=== PATIENT | female | born 1980 | race Caucasian/White ===

== ENCOUNTER 2020-03-22 05:57 | Day surgery (SDC) | payer OTHER ==
--- NOTE | 2020-03-18 15:30 | RAD REPORT ---
EXAM DESCRIPTION: RAD - Chest Pa And Lat (2 Views) - 03/18/2020 3:24 pm CLINICAL HISTORY: pre op Chest pain. COMPARISON: No comparisons FINDINGS: The lungs are clear. The heart is normal in size. No displaced fractures. IMPRESSION: No acute or concerning finding suspected.
[2020-03-18 15:57] LABS: Absolute Lymphocytes (CBC) 2.2 K/uL (0.7-4.9); Basophils % 0.5 % (0-1.3); Hematocrit 40.4 % (36.0-45.0); Lymphocytes % 25.2 % (15.3-44.8); MPV 8.3 fL (7.6-11.3); RBC Red Blood Cell Count 4.58 M/uL (3.86-4.86)
[2020-03-18 16:08] LABS: Potassium 3.9 mmol/L (3.5-5.1); Protime INR 0.92
--- NOTE | 2020-03-19 19:34 | EKG ---
Test Date: 2020-03-18 Test Time: 15:02:22 Data Base Administrator: TG MEASUREMENT RESULTS: Intervals: Rate: 66 KS: 186 QRSD: 68 QT: 388 QTc: 406 [place]: P: 44 KS: 186 QRS: 5 T: 42 INTERPRETIVE STATEMENTS: Normal sinus rhythm Normal ECG No previous ECG available for comparison Electronically Signed On 03-19-20 19:32:30 GEOTECHNICIAN by Riley Musa
--- OUTSIDE RECORDS SUMMARY | 2020-03-22 05:59 | XMS REPORT ---
:1980 Author Organization [facility] Address [address] [place], [facility] [address] [id number] Care Team Providers Name Role Phone Green Kim Unavailable [phone] PROBLEMS Type Condition ICD9-CM [id number] Onset Condition SNOMED Code Notes Code Code Dates Status Problem Morbid obesity E66.01 Active 239743074 Problem Vitamin D E55.9 Active 01507286 deficiency Problem Moderately F33.2 Active 010646445 severe recurrent major depression Problem Chronic fatigue R53.82 Active 84944760 Problem Seasonal J30.2 Active 611224054 allergies Problem Anxiety, F41.1 Active 38974286 generalized ALLERGIES Allergen (clinical drug Drug/Non Drug Allergy Reaction Allergy Type Onset Date Status ingredient) documented on EMR meperidine Demerol([facility] hives Drug Allergy Active Code:[address]-21) ENCOUNTERS from 1980 to 2020-01-17 Encounter Location Date Provider Diagnosis [facility] Family [address] Vasquez [facility] [address] [place] [address] Jan, 2020 [place] [address] IMMUNIZATIONS No Information SOCIAL HISTORY Tobacco Use: Social History Observation Description Date Details (start date - stop date) Never Smoker Sex Assigned At : Social History Observation Description Sex Assigned At Unknown PHQ9 Question Answer Notes Little interest or pleasure in doing things More than half t he days Feeling down, depressed, or hopeless More than half the days Trouble falling or staying asleep or sleeping too More than half the days much Feeling tired or having little energy Nearly every day Poor appetite or overeating Nearly every day Feeling bad about yourself, or that you are a Nearly every d ay failure, or have let yourself or your family down Trouble concentrating on things, such as reading More than h [facility] the days the newspaper or watching television Moving or speaking so slowly that other people Not at all could have noticed; or the opposite, being so fidgety or restless that you have been moving around a lot more than usual Total Score 17 Interpretation Moderately severe depression Thoughts that you would be better off or of Not at all hurting yourself in some way Tobacco Use/Smoking Question Answer Notes Are you a never smoker REASON FOR REFERRAL No Information VITAL SIGNS No information MEDICATIONS Medication SIG (Take, Route, Frequency, Start Date End Date Status Duration) BuPROPion HCl ER (SR) 150 MG 1 tablet in the morning and 08 Dec, 20 20 Active PM Orally Once a day for 30 day(s) PROCEDURES No Information RESULTS No Results REASON FOR VISIT Medication and question about last visit MEDICAL (GENERAL) HISTORY Type Description Date Medical History Allergic rhinitis Medical History Depression Medical History Swelling Medical History Anxiety Surgical History appendectomy 1978 Surgical History blockage- intestine cut 1978 Goals Section No Information Health Concerns No Information MEDICAL EQUIPMENT No Information MENTAL STATUS No Information FUNCTIONAL STATUS No Information ASSESSMENTS No Information PLAN OF TREATMENT Medication Medication Name Sig Start Date Stop Date BuPROPion HCl ER (SR) 150 MG 1 tablet in the morning and PM 08 S , 2019 Orally Once a day for 30 day(s) Next Appt Details Provider Name:Oliver Glezcabrera 2020-01-30 0 2:30:00 PM, [address], [place], [address], Insurance Providers Payer Name Payer Payer Insured Name Patient Coverage Covera End Address Phone Relationship to Start Date Alcon e Insured ENTRUST [phone] Wesley Hayward self 2019 [id number] [facility] [phone]
--- OUTSIDE RECORDS SUMMARY | 2020-03-22 05:59 | XMS REPORT ---
:1980 Author Organization [facility] Address [address], [address] [place] [address] Care Team Providers Name Role Phone Kim Green Unavailable [phone] PROBLEMS Type Condition ICD9-CM [id number] Onset Condition SNOMED Code Notes Code Code Dates Status Problem Vitamin D E55.9 Active 44230013 deficiency Problem Seasonal J30.2 Active 423095941 allergies Problem Anxiety, F41.1 Active 96303288 generalized Problem Left hand pain M79.642 Active 999464204019457 Problem Morbid obesity E66.01 Active 032060670 Problem Pre-op Z01.818 Active 881073252303683 evaluation Problem Moderately F33.2 Active 365561701 severe recurrent major depression Problem Chronic R53.82 Active 32121465 fatigue Problem Carpal tunnel G56.01 Active 876373261157393 syndrome of right wrist Problem Carpal tunnel G56.02 Active 468665511356345 syndrome of left wrist Problem Low vitamin D R79.89 Active 867505510 level ALLERGIES Allergen (clinical drug Drug/Non Drug Allergy Reaction Allergy Type Onset Date Status ingredient) documented on EMR meperidine Demerol([facility] hives Drug Allergy Active Code:[address]-35) ENCOUNTERS from 1980 to 2020-02-29 Encounter Location Date [facility] [address] Feb, Kim Green Pre-op evaluation Family Medicine [place], [place] Z01.818 ; Low vitamin [address] D level R79.89 ; Carpal tunnel syndrome of rig ht wrist G56.01 ; Carpal tunnel syndrome of left wrist G56. 02 and Trigger thumb o f right hand M65. 311 IMMUNIZATIONS No Information SOCIAL HISTORY Tobacco Use: [...] things, such as reading More than h [place] the days the newspaper or watching television [...] at all hurting yourself in some way Alcohol Screen Question Answer Notes Did you have a drink containing alcohol in the past Yes year? Points 2 Interpretation Negative How often did you have 6 or more drinks on one Less than mon thly (1 point) occasion in the past year? How many drinks did you have on a typical day when 1 or 2 (0 points) you were drinking in the past year? How often did you have a drink containing alcohol Monthly or less (1 point) in the past year? Tobacco Use/Smoking Question Answer Notes Are you a never smoker Additional Findings: Tobacco Non-User Current non-smoker REASON FOR REFERRAL No Information VITAL SIGNS Height 59.00 in Feb, Weight 228.6 lbs Feb, Temperature 97.6 degrees Fahrenheit Feb, BMI 46.17 kg/m2 Feb, Oximetry 95 % Feb, Respiratory Rate 16 /min Feb, Blood pressure systolic 144 mm Hg Feb, Blood pressure diastolic 86 mm Hg Feb, MEDICATIONS Medication SIG (Take, Route, Notes Start Date End Date Status Frequency, Duration) BuPROPion HCl ER (SR) 1 tablet in the morning Dec, Not-Taking 150 MG and PM Orally Once a day for 30 day(s) PROCEDURES No Information RESULTS No Results REASON FOR VISIT Surgical clearance MEDICAL (GENERAL) HISTORY Type Description Date Medical History Allergic rhinitis Medical History Depression Medical History Anxiety Surgical History appendectomy 1978 Surgical History blockage- intestine cut 1978 Goals Section No Information Health Concerns No Information MEDICAL EQUIPMENT No Information MENTAL STATUS No Information FUNCTIONAL STATUS No Information ASSESSMENTS Encounter Date Diagnosis Assessment Notes Treatment Notes Treatm ent Clinical Notes Feb, Pre-op evaluation per recent labs (ICD-10 - 12/2019, ROS and PE Z01.818) and PMH will clear patient for carpal tunnel surgery and right trigger thumb release planned for 03/15/[address]Vega spence Feb, Low vitamin D Increase foods level (ICD-10 - rich in vitamin D R79.89) such as leafy greens, low fat milk or yogurt. Stay physically active. For strong bones and osteoprosis prevention take calcium 1200mg daily and vitamin D3 (2,000mg) daily. continue to stay physically active and do weight bearing exercises. Feb, Carpal tunnel per [place] syndrome of right severe EMG/NCS wrist (ICD-10 - findings and G56.01) difficulties with ADLs, will have planned right carpal tunnel release on 03/15/2020 pending normal preop labs. Feb, Carpal tunnel -proceed with left syndrome of left carpal tunnel wrist (ICD-10 - release after G56.02) patient has recovered from right carpal tunnel release Feb, Trigger thumb of -hronic trigger right hand thumb for > 20 (ICD-10 - years with flexion M65.311) deformity -planned to have trigger finger release with carpal tunnel release Feb, Other wear wrist splint -- Medicat ions and avoid trigger reviewed a nd until surgery, updated. -- Dietary and Lifestyle modifications discussed with patient regardi ng low fat low avelina t diet diet, exer cise and weight management. -- Treatment options, risks and benefits, side effects reviewe d in detail. Patient accepts risk. Patient verbali zed understanding a nd agreed with alex n. e time was spent counseling and coordinating ca re including but n ot limited to discussion of t est results, diagno stic or treatment recommendations , prognosis, risk s and benefits of management opti ons, instructions, education, compliance and or risk reduction. PLAN OF TREATMENT Treatment Notes Assessment Notes Clinical Notes Pre-op evaluation per recent labs 12/2019, ROS and PE and PMH will clear patient for carpal tunnel surgery and right trigger thumb release planned for 03/15/[address]Vega spence Low vitamin D level Increase foods rich in vitamin D such as leafy greens, low fat milk or yogurt. Stay physically active.For strong bones and osteoprosis prevention take calcium 1200mg daily and vitamin D3 (2,000mg) daily. continue to stay physically active and do weight bearing exercises. Carpal tunnel syndrome of right per [place] sp[place] severe EMG/ NCS wrist findings and difficulties with ADLs, will have planned right carpal tunnel release on 03/15/2020 pending normal preop labs. Carpal tunnel syndrome of left -proceed with left carpal maggie dara wrist release after patient has recovered from right carpal tunnel release Trigger thumb of right hand -hronic trigger thumb for > 20 y ears with flexion deformity-planned to have trigger finger release with carpal tunnel release Next Appt Details prn within next 3 months per patient cecelia real for pap Reason: Insurance Providers Payer Name Payer Payer Insured Name Patient Coverage Covera ge End Address Phone Relationship to Start Date Alcon e Insured ENTRUST [phone] Wesley Hayward self 2019 [id number] [address] [facility] [id number]
--- OUTSIDE RECORDS SUMMARY | 2020-03-22 05:59 | XMS REPORT ---
:1980 Author Organization [facility] Address [address] [facility] 1 [place] [address] Care Team Providers Name Role Phone HewittOliver rees Unavailable [phone] PROBLEMS Type Condition ICD9-CM [id number] Onset Condition SNOMED Code Notes Code Code Dates Status Problem Vitamin D E55.9 Active 34261612 deficiency Problem Seasonal J30.2 Active 783073273 allergies Problem Anxiety, F41.1 Active 91412906 generalized Problem Left hand pain M79.642 Active 168444453595270 Problem Morbid obesity E66.01 Active 080478532 Problem Pre-op Z01.818 Active 721354931306364 evaluation Problem Moderately F33.2 Active 075773880 severe recurrent major depression Problem Chronic R53.82 Active 08528250 fatigue Problem Carpal tunnel G56.01 Active 490418873147395 syndrome of right wrist Problem Carpal tunnel G56.02 Active 105062840468740 syndrome of left wrist Problem Low vitamin D R79.89 Active 346972892 level ALLERGIES Allergen (clinical drug Drug/Non Drug Allergy Reaction Allergy Type Onset Date Status ingredient) documented on EMR meperidine Demerol([facility] hives Drug Allergy Active Code:[address]-87) ENCOUNTERS from 1980 to 2020-02-25 Encounter Location Date Provider Diagnosis [facility] [address] Feb, Oliver Hewitt Righ t hand pain [facility] [address] [place], M79.641 ; Left hand [facility] [address] pain M79.642 ; Carpal tunnel syndrome of lef t wrist G56.02 ; Carpal tunnel syndrome of rig ht wrist G56.01 an d Trigger thumb o f right hand M65. [...] VITAL SIGNS Height 59.00 in Feb, Weight 226.6 lbs Feb, BMI 45.76 kg/m2 Feb, Blood pressure systolic 109 mm Hg Feb, Blood pressure diastolic 45 mm Hg Feb, MEDICATIONS Medication SIG (Take, Route, Notes Start Date End Date Status Frequency, Duration) BuPROPion HCl ER (SR) 1 tablet in the morning Dec, Not-Taking 150 MG and PM Orally Once a day for 30 day(s) PROCEDURES No Information RESULTS No Results REASON FOR VISIT NEW PT: [facility] HAND PAIN--HAS EMG W/DR. PARNELL MEDICAL (GENERAL) HISTORY Type Description Date Medical History Allergic rhinitis Medical History Depression Medical History Anxiety Surgical History appendectomy 1978 Surgical History blockage- intestine cut 1979 Goals Section No Information Health Concerns No Information MEDICAL EQUIPMENT No Information MENTAL STATUS No Information FUNCTIONAL STATUS No Information ASSESSMENTS Encounter Date Diagnosis Assessment Notes Treatment Notes Treatm ent Clinical Notes Feb, Right hand pain (ICD-10 - M79.641) Feb, Left hand pain (ICD-10 - M79.642) Feb, Carpal tunnel -proceed with left syndrome of left carpal tunnel release wrist (ICD-10 - after patient has G56.02) recovered from right carpal tunnel release Feb, Carpal tunnel I discussed with the syndrome of patient at length her right wrist diagnosis and (ICD-10 - treatment plan and G56.01) she expressed understanding. Given severe EMG/NCS findings and difficulties with ADLs, will proceed with right carpal tunnel release. I discussed with the patient risks and benefits associated with the procedure at length as well as postoperative rehabilitation and she expressed understanding. Feb, Trigger thumb of -discussed with the right hand patient her condition (ICD-10 - at length M65.311) -appears to have chronic trigger thumb for > 20 years with flexion deformit y -will proceed with trigger finger release with carpal tunnel release -discussed possibility of continued flexion contracture secondary to joint contractures from chronic deformity -expressed understanding PLAN OF TREATMENT Treatment Notes Assessment Notes Clinical Notes Carpal tunnel syndrome of left -proceed with left carpal maggie dara wrist release after patient has recovered from right carpal tunnel release Carpal tunnel syndrome of right I discussed with the patient at wrist length her diagnosis and treatment plan and she expressed understanding. Given severe EMG/NCS findings and difficulties with ADLs, will proceed with right carpal tunnel release. I discussed with the patient risks and benefits associated with the procedure at length as well as postoperative rehabilitation and she expressed understanding. Trigger thumb of right hand -discussed with the patient her condition at length-appears to have chronic trigger thumb for > 20 years with flexion deformity-will proceed with trigger finger release with carpal tunnel release-discussed possibility of continued flexion contracture secondary to joint contractures from chronic deformity-expressed understanding Treatment Notes Test Name Order Date X-RAY EXAM HAND 3 VIEWS ([id number]) 2020-02-25 Next Appt Details f/u 1 week postop Reason: Insurance Providers Payer Name Payer Payer Insured Name Patient Coverage Covera ge End Address Phone Relationship to Start Date Alcon e Insured ENTRUST [phone] Wesley Hayward self 2019 [id number] [address] [facility] [phone]
--- OUTSIDE RECORDS SUMMARY | 2020-03-22 05:59 | XMS REPORT | Continuity of Care Document ---
:1980 Author Organization [facility] t Address [address] [place] [address] Care Team Providers Name Role Phone Unavailable Unavailable Unavailable Problems This patient has no known problems. Allergies, Adverse Reactions, Alerts Allergy Allergy Status Severity Reaction(s) Onset Inactive Treating Comm ents Source Name Type Date Date Clinician Demerol Adverse Active hives [facility] Medications Ordered Filled Start Stop Current Ordering Indication Dosage Frequency Signature Comments Components Source Medication Medication Date Date Medication? Clinician (SIG) Name Name BuPROPion BuPROPion Yes Na Green [address] [facility] HCl ER (SR) HCl ER (SR) 12-11 in the [facility] Procedures This patient has no known procedures. Encounters Start End Encounter Admission Attending Care Care Encounter Source Date/Time Date/Time Type Type Clinicians Facility Department ID 2020-03-21 2020-03-21 Outpatient [facility] [id number] [facility] 2020-03-12 2020-03-12 Outpatient [facility] [id number] [facility] 2020-03-07 2020-03-07 Outpatient [facility] [id number] [facility] 2020-02-22 2020-02-22 Outpatient [facility] [id number] [facility] 2020-02-16 2020-02-16 Out[facility] [id number] [facility] 2020-02-15 2020-02-15 Out[facility] [id number] [facility] 2020-01-20 2020-01-20 Outpatient [facility] [id number] [facility] 2020-01-16 2020-01-16 Out[facility] [id number] [facility] 2019-12-18 2019-12-18 Outpatient Rhina Shankar [id number] [facility] 16:00[facility]00 16:00:00 [employer] [facility] Clin[facility] 2019-12-12 2019-12-12 Outpatient Rhina Shankar [id number] 15:20:00 15:20:00 [employer] [facility] Clin[facility] Results This patient has no known results.
--- OUTSIDE RECORDS SUMMARY | 2020-03-22 05:59 | XMS REPORT ---
:1980 Author Organization [facility] Address [address], [facility] [address] [id number] Care Team Providers Name Role Phone Green Kim Unavailable [phone] PROBLEMS Type Condition ICD9-CM UBL37-IP Onset Condition SNOMED Code Notes Code Code Dates Status Problem Morbid obesity E66.01 Active 978828851 Problem Vitamin D E55.9 Active 55691201 deficiency Problem Moderately F33.2 Active 602421787 severe recurrent major depression Problem Chronic fatigue R53.82 Active 14133313 Problem Seasonal J30.2 Active 788389420 allergies Problem Anxiety, F41.1 Active 95040892 generalized ALLERGIES Allergen (clinical drug Drug/Non Drug Allergy Reaction Allergy Type Onset Date Status ingredient) documented on EMR meperidine Demerol([facility] hives Drug Allergy Active Code:[address]-37) ENCOUNTERS from 1980 to 2020-01-23 Encounter Location Date Provider Diagnosis [facility] Family [address] Vasquez [facility] [address] [address] Jan, 2020 [place] [address] IMMUNIZATIONS No Information SOCIAL HISTORY Tobacco Use: [...] things, such as reading More than h senior living the days the newspaper or watching television [...] Information RESULTS No Results REASON FOR VISIT labs MEDICAL (GENERAL) HISTORY Type Description Date Medical [...] 30 day(s) Next Appt Details Provider Name:Oliver Hewitt, 2020-01-30 0 2:30:00 PM, [address], [place], [address], Insurance Providers Payer Name Payer Payer Insured Name Patient Coverage Covera ge End Address Phone Relationship to Start Date Alcon e Insured [employer]TR[employer] [phone] Wesley Hayward self 2019 [id number] [address] [facility] [address]
--- OUTSIDE RECORDS SUMMARY | 2020-03-22 05:59 | XMS REPORT ---
:1980 Author Organization [facility] Address [address] [place] [address] Care Team Providers Name Role Phone Oliver Hewitt Unavailable [phone] PROBLEMS Type Condition ICD9-CM [id number] Onset Condition SNOMED Code Notes Code Code Dates Status Problem Vitamin D E55.9 Active 15622397 deficiency Problem Seasonal J30.2 Active 753253093 allergies Problem Anxiety, F41.1 Active 23611019 generalized Problem Left hand pain M79.642 Active 186871654303519 Problem Morbid obesity E66.01 Active 192068540 Problem Pre-op Z01.818 Active 872233005571721 evaluation Problem Moderately F33.2 Active 125537239 severe recurrent major depression Problem Chronic R53.82 Active 21179229 fatigue Problem Carpal tunnel G56.01 Active 736058385853087 syndrome of right wrist Problem Carpal tunnel G56.02 Active 622750461033328 syndrome of left wrist Problem Low vitamin D R79.89 Active 309113283 level ALLERGIES Allergen (clinical drug Drug/Non Drug Allergy Reaction Allergy Type Onset Date Status ingredient) documented on EMR meperidine Demerol([facility] hives Drug Allergy Active Code:[address]-22) ENCOUNTERS from 1980 to 2020-03-04 Encounter Location Date Provider Diagnosis [facility] [address] Feb, Olga Hewitt [place] [address] IMMUNIZATIONS No Information SOCIAL HISTORY Tobacco Use: [...] things, such as reading More than h half-way the days the newspaper or watching television [...] or more drinks on one Less than wed thly (1 point) occasion in the past [...] No information MEDICATIONS Medication SIG (Take, Route, Notes Start Date End Date Status Frequency, Duration) BuPROPion HCl ER (SR) 1 tablet in the morning Dec, Not-Taking 150 MG and PM Orally Once a day for 30 day(s) PROCEDURES No Information RESULTS No Results REASON FOR VISIT pcp clearance request MEDICAL (GENERAL) HISTORY Type Description Date Medical History Allergic rhinitis Medical History Depression Medical History Anxiety Surgical History appendectomy 1978 Surgical History blockage- intestine cut 1979 Goals Section No Information Health Concerns No Information MEDICAL EQUIPMENT No Information MENTAL STATUS No Information FUNCTIONAL STATUS No Information ASSESSMENTS No Information PLAN OF TREATMENT No Information Insurance Providers Payer Name Payer Payer Insured Name Patient Coverage Covera End Address Phone Relationship to Start Date Alcon e Insured [employer]TR[employer] [phone] Wesley Hayward self 2019 [id number] [facility] [id number]
--- OUTSIDE RECORDS SUMMARY | 2020-03-22 06:00 | XMS REPORT ---
:1980 Author Organization [facility] Address [address] [place] [address] Care Team Providers Name Role Phone Oliver Hewitt Unavailable [phone] PROBLEMS Type Condition ICD9-CM [id number] Onset Condition SNOMED Code Notes Code Code Dates Status Problem Vitamin D E55.9 Active 58593999 deficiency Problem Seasonal J30.2 Active 891394792 allergies Problem Anxiety, F41.1 Active 33331561 generalized Problem Left hand pain M79.642 Active 310086685900269 Problem Morbid obesity E66.01 Active 948992340 Problem Pre-op Z01.818 Active 859594085026157 evaluation Problem Moderately F33.2 Active 323879257 severe recurrent major depression Problem Chronic R53.82 Active 13246716 fatigue Problem Carpal tunnel G56.01 Active 842746114380674 syndrome of right wrist Problem Carpal tunnel G56.02 Active 272706320022516 syndrome of left wrist Problem Low vitamin D R79.89 Active 234982024 level ALLERGIES Allergen (clinical drug Drug/Non Drug Allergy Reaction Allergy Type Onset Date Status ingredient) documented on EMR meperidine Demerol([facility] hives Drug Allergy Active Code:[address]-49) ENCOUNTERS from 1978 to 2020-03-13 Encounter Location Date Provider Diagnosis [facility] [address], [place] [address] IMMUNIZATIONS No Information SOCIAL HISTORY Tobacco Use: [...] things, such as reading More than h retirement the days the newspaper or watching television [...] more drinks on one Less than wed (1 point) occasion in the past year? [...] Information RESULTS No Results REASON FOR VISIT surgery cost MEDICAL (GENERAL) HISTORY Type Description Date Medical History Allergic rhinitis Medical History Depression Medical History Anxiety Surgical History appendectomy 1978 Surgical History blockage- intestine cut 1978 Goals Section No Information Health Concerns No Information MEDICAL EQUIPMENT No Information MENTAL STATUS No Information FUNCTIONAL STATUS No Information ASSESSMENTS No Information PLAN OF TREATMENT Next Appt Details Provider Name:Oliver Hewitt, 2020-04-01 0 3:00:00 PM, [address], [place], [address], Insurance Providers Payer Name Payer Payer Insured Name Patient Coverage Covera ge End Address Phone Relationship to Start Date Alcon e Insured [employer] [phone] Wesley Hayward self 2021 [id number] [facility] [id number]
--- OUTSIDE RECORDS SUMMARY | 2020-03-22 06:00 | XMS REPORT ---
:1980 Author Organization [facility] Address [address] [facility] [address] [place] [address] Care Team Providers Name Role Phone Kash Oliver Unavailable [phone] PROBLEMS Type Condition ICD9-CM [id number] Onset Condition SNOMED Code Notes Code Code Dates Status Problem Vitamin D E55.9 Active 16474106 deficiency Problem Seasonal J30.2 Active 974424078 allergies Problem Anxiety, F41.1 Active 65430467 generalized Problem Left hand pain M79.642 Active 243942360965554 Problem Morbid obesity E66.01 Active 058538368 Problem Pre-op Z01.818 Active 124040034365246 evaluation Problem Moderately F33.2 Active 459052174 severe recurrent major depression Problem Chronic R53.82 Active 01286423 fatigue Problem Carpal tunnel G56.01 Active 851757660939807 syndrome of right wrist Problem Carpal tunnel G56.02 Active 319492564158296 syndrome of left wrist Problem Low vitamin D R79.89 Active 003223171 level ALLERGIES Allergen (clinical drug Drug/Non Drug Allergy Reaction Allergy Type Onset Date Status ingredient) documented on EMR meperidine Demerol([facility] hives Drug Allergy Active Code:[address]-58) ENCOUNTERS from 1978 to 2020-03-14 Encounter Location Date Provider Diagnosis [facility] [address], Oliver moss hand pain [facility] [address] [place], M79.641 ; [facility] [address] tunnel syndrom e of right wrist G56 .01 ; Left hand abbie n M79.642 ; Alexa er thumb of right hand M65.311 and Car pal tunnel syndrome of left wrist G56. 02 IMMUNIZATIONS No Information SOCIAL HISTORY Tobacco Use: [...] No Information VITAL SIGNS Height 59.00 in Mar, Weight 228 lbs Mar, Temperature 96.6 degrees Fahrenheit Mar, BMI 46.05 kg/m2 Mar, Blood pressure systolic 126 mm Hg Mar, Blood pressure diastolic 78 mm Hg Mar, MEDICATIONS Medication SIG (Take, Route, Notes Start Date End Date Status Frequency, Duration) BuPROPion HCl ER (SR) 1 tablet in the morning Dec, Not-Taking 150 MG and PM Orally Once a day for 30 day(s) PROCEDURES No Information RESULTS No Results REASON FOR VISIT F/U RT HAND PAIN, DISCUSS SURGERY FOR RT CTR AND RT THUMB TRIGGER RELEASE 03/22/2020 MEDICAL (GENERAL) HISTORY Type Description Date Medical History Allergic rhinitis Medical History Depression Medical History Anxiety Surgical History appendectomy 1978 Surgical History blockage- intestine cut 1979 Goals Section No Information Health Concerns No Information MEDICAL EQUIPMENT No Information MENTAL STATUS No Information FUNCTIONAL STATUS No Information ASSESSMENTS Encounter Date Diagnosis Assessment Notes Treatment Notes Treatm ent Clinical Notes Mar, Right hand pain (ICD-10 - M79.641) Mar, Carpal tunnel I discussed with the syndrome of patient at length her right wrist diagnosis and (ICD-10 - treatment plan and G56.01) she expressed understanding. Given severe EMG/NCS findings and difficulties with ADLs, will proceed with right carpal tunnel release. I discussed with the patient risks and benefits associated with the procedure at length as well as postoperative rehabilitation and she expressed understanding. We will proceed with surgery in the coming weeks. Mar, Left hand pain (ICD-10 - M79.642) Mar, Trigger thumb of -discussed with the right hand patient her condition (ICD-10 - at length M65.311) -appears to have chronic trigger thumb for > 20 years with flexion deformit y -will proceed with trigger finger release with carpal tunnel release -discussed possibility of continued flexion contracture secondary to joint contractures from chronic deformity -expressed understanding Mar, Carpal tunnel -proceed with left syndrome of left carpal tunnel release wrist (ICD-10 - after patient has G56.02) recovered from right carpal tunnel release PLAN OF TREATMENT Treatment Notes Assessment Notes Clinical Notes Carpal tunnel syndrome of right I discussed with the patient at wrist length her diagnosis and treatment plan and she expressed understanding. Given severe EMG/NCS findings and difficulties with ADLs, will proceed with right carpal tunnel release. I discussed with the patient risks and benefits associated with the procedure at length as well as postoperative rehabilitation and she expressed understanding. We will proceed with surgery in the coming weeks. Trigger thumb of right hand -discussed with the patient her condition at length-appears to have chronic trigger thumb for > 20 years with flexion deformity-will proceed with trigger finger release with carpal tunnel release-discussed possibility of continued flexion contracture secondary to joint contractures from chronic deformity-expressed understanding Carpal tunnel syndrome of left -proceed with left carpal maggie dara wrist release after patient has recovered from right carpal tunnel release Next Appt Details 1 Week after surgery Reason: Provider Name:Oliver Hewitt 2020-04-01 0 3:00:00 PM, [address], [place], [address], Insurance Providers Payer Name Payer Payer Insured Name Patient Coverage Covera End Address Phone Relationship to Start Date Alcon e Insured [employer] [phone] Wesley Hayward self 2021 [id number] [facility] [id number]
--- OUTSIDE RECORDS SUMMARY | 2020-03-22 06:00 | XMS REPORT ---
:1980 Author Organization [facility] Address [address] [place] [address] Care Team Providers Name Role Phone Kim Green Unavailable [phone] PROBLEMS Type Condition ICD9-CM [id number] Onset Condition SNOMED Code Notes Code Code Dates Status Problem Vitamin D E55.9 Active 12182866 deficiency Problem Seasonal J30.2 Active 815889430 allergies Problem Anxiety, F41.1 Active 68885594 generalized Problem Left hand pain M79.642 Active 451202943740913 Problem Morbid obesity E66.01 Active 002401861 Problem Pre-op Z01.818 Active 497010462782794 evaluation Problem Moderately F33.2 Active 295282284 severe recurrent major depression Problem Chronic R53.82 Active 50630728 fatigue Problem Carpal tunnel G56.01 Active 502598270982136 syndrome of right wrist Problem Carpal tunnel G56.02 Active 090941083841607 syndrome of left wrist Problem Low vitamin D R79.89 Active 657139507 level ALLERGIES Allergen (clinical drug Drug/Non Drug Allergy Reaction Allergy Type Onset Date Status ingredient) documented on EMR meperidine Demerol([facility] hives Drug Allergy Active Code:[address]-24) ENCOUNTERS from 1978 to 2020-03-21 Encounter Location Date Provider Diagnosis [facility] [address], Kim [facility] [place] [address] IMMUNIZATIONS No Information SOCIAL HISTORY Tobacco Use: [...] HCl ER (SR) 1 tablet in the Dec, Not-Taking 150 MG morning and PM Orally Once a day for 30 day(s) Tylenol # 3 300/30mg one tab PO q 6 hrs Mar,2020 Active prn pain for 30 days PROCEDURES No Information RESULTS No Results REASON FOR VISIT rx for sx MEDICAL (GENERAL) HISTORY Type Description Date Medical History Allergic rhinitis Medical History Depression Medical History Anxiety Surgical History appendectomy 1978 Surgical History blockage- intestine cut 1978 Goals Section No Information Health Concerns No Information MEDICAL EQUIPMENT No Information MENTAL STATUS No Information FUNCTIONAL STATUS No Information ASSESSMENTS No Information PLAN OF TREATMENT Medication Medication Name Sig Start Date Stop Date Tylenol # 3 300/30mg one tab PO q 6 hrs prn pain for 30 Mar, May, days Next Appt Details Provider Name:Oliver Hewitt, 2020-04-01 0 3:00:00 PM, [address], [place], [address], Insurance Providers Payer Name Payer Payer Insured Name Patient Coverage Covera End Address Phone Relationship to Start Date Alcon e Insured [employer] [phone] Wesley Hayward self 2021 [id number] [facility] [phone]
[2020-03-22] MEDS ORDERED: CEFAZOLIN/SWI 1gm 1 GM/10 ML SYR ONE (06:28)
[2020-03-22] MEDS ORDERED: Ringers Lactate 1,000 ML IV ONE (06:28)
[2020-03-22] MEDS ORDERED: propofoL 200 MG/20 ML VIAL IV ONE (06:59)
[2020-03-22] MEDS ORDERED: FENTANYL CITR 100 MCG/2 ML ONE (07:00)
[2020-03-22] MEDS ORDERED: LIDOCAINE 2% MPF 5 ML VIAL ONE (07:00)
[2020-03-22] MEDS ORDERED: MIDAZOLAM HCL 2 MG/2 ML INJ ONE (07:00)
[2020-03-22] MEDS ORDERED: ONDANSETRON 4 MG/2 ML VIAL ONE (07:01)
[2020-03-22] MEDS ORDERED: dexAMETHasone 10 MG/ML VIAL ONE (07:25)
[2020-03-22] MEDS: BUPIVACAINE 0.25% PF 10 ML VIAL ONE ×2 (07:36→08:00)
[2020-03-22] MEDS ORDERED: EPHEDRINE SULF 50 MG/ML VIAL ONE (07:37)
[2020-03-22] MEDS ORDERED: KETOROLAC 30 MG/ML INJ ONE (07:41)
--- NOTE | 2020-03-22 08:21 | P.BOP ---
Preoperative diagnosis: right carpal tunnel syndrome, right chronic trigger thumb Postoperative diagnosis: same Primary procedure: right open carpal tunnel release Secondary procedure: right trigger thumb A1 lambert release Foundry Manager: NONE,NONE Estimated blood loss: 5 cc Specimen: none Findings: see dictation Anesthesia: General Complications: None Implants: none Fluids & blood products: per anesthesia record; TT: 39 mins @ 250 mmHg Transferred to: Recovery Room Condition: Good
[2020-03-22] MEDS: MORPHINE 4 MG/ML SYR ONE ×2 (08:44→08:49)
[2020-03-22 09:47] VITALS: BP 102/52; TEMP 97.2; O2SAT 99
[2020-03-22] MEDS ORDERED: HYDROCODONE/APAP 10/325 TAB ONE (09:58)
--- NOTE | 2020-03-22 11:55 | OP ---
Date of Procedure: 03/22/2020 Surgeon: Oliver Hewitt MD Preoperative Diagnoses: 1.Right carpal tunnel syndrome. 2.Right chronic trigger thumb. Postoperative Diagnoses: 1.Right carpal tunnel syndrome. 2.Right chronic trigger thumb. Procedures Performed: 1.Right open carpal tunnel release. 2.Right thumb A1 lambert release. Anesthesia: General LMA. Fluids: Per Anesthesia record. Ebl: 3 cc. Complications: None Indication For Procedure: Ms. Hayward is a 39-year-old female presented to me with signs, symptoms, and EMG findings consistent with a right carpal tunnel syndrome, which has failed to improve with conser vative treatment measures. The patient also reported over 25 year history of right thumb flexion def ormity with pain over her A1 lambert. I discussed with the patient at length risks and benefits assoc iated with operative and nonoperative treatment and discussed proceeding with a right open carpal maggie dara release as well as A1 lambert release with the possibility of improving her range of motion, howev er, we did discuss the possibility of continued contraction, stiffness in her thumb. She expressed u nderstanding and elected to proceed with operative treatment. Description Of Procedure: After informed consent was obtained, the patient was identified in the pre operative holding area. The right upper extremity was marked. The patient was then taken to the ope rating room, transferred to the operating table in the supine fashion and placed under general LMA an esthesia. The right upper extremity was then prepped and draped in usual sterile fashion. A time-ou t was initiated. The correct patient and procedure were confirmed and identified. The patient did r eceive her preoperative prophylactic antibiotics. Right upper extremity was exsanguinated and the to urniquet was inflated to 250 mmHg. Attention was first taken to the carpal tunnel, where approximate ly a 2 cm longitudinal incision was made just ulnar to the thenar crease. Dissection was then taken down to the palmar fascia. A [place] elevator was placed deep to the palmar fascia and the palmar fasc ia and transverse carpal ligament were released in a distal proximal fashion. [place] elevator was bel ow the transverse carpal ligament all times to protect the median nerve and any remaining fascial ban ds were then released using a small tip Metzenbaum scissors with the tip's end superficially. The wo und was then irrigated thoroughly with normal saline. Next, attention was taken to the thumb A1 pull ey where approximately 1.5 cm incision was made over the thumb flexion crease. Dissection was then t aken down to the flexor tendon sheath, which was very fibrotic. It also appeared to be incorporated with the flexor tendon. The flexor tendon sheath was then opened with a 15 blade and debrided using Metzenbaums and tenotomies protecting the radial digital nerve at all times. The wound was then irri gated thoroughly with normal saline. The patient was also noted to have continued contracture second elena to the significant fibrosis of her flexor tendon of the thumb. Again, the wounds were then irrig ated thoroughly with normal saline. Skin was approximated using a 5-0 Prolene. Sterile dressings we re applied. The patient was awakened and transferred to PACU in stable condition. Postoperative Plan: She will work on range of motion exercises of her right hand and follow up in 1 week for suture removal. SHARON/ERIC Voice ID: [id number] Report ID: [id number]
== END 2020-03-22 10:40 | disposition home or self-care (01) ==
LOC: OR 05:57
PROVIDERS: ATTEND Orthopaedic Surgery Sports Medicine
PROC: 01N50ZZ Release Median Nerve, Open Approach (ICD-10-PCS; principal; 2020-03-22 07:30)
PROC: 0LN70ZZ Release Right Hand Tendon, Open Approach (ICD-10-PCS; 2020-03-22 07:30)
DX: G56.03 Carpal tunnel syndrome, bilateral upper limbs (principal); M65.311 Trigger thumb, right thumb; F32.9 Major depressive disorder, single episode, unspecified; F41.9 Anxiety disorder, unspecified; Z20.828 Contact with and (suspected) exposure to other viral communicable diseases
CPT/HCPCS: 93005; 85025; 80048; 36415; 81025; 85610; 85730; 71046; 64721; 26055; U0002; J2704; J2250; J3010; J1100; J0690; J7120; J2405

== ENCOUNTER 2020-12-18 09:34 | Day surgery (SDC) | payer OTHER ==
--- NOTE | 2020-12-13 09:01 | RAD REPORT ---
EXAM DESCRIPTION: RAD - Chest Pa And Lat (2 Views) - 12/13/2020 8:50 am CLINICAL HISTORY: PreOp COMPARISON: Chest Pa And Lat (2 Views) dated 03/18/2020 FINDINGS: Lines: None. Lungs: No evidence of edema or pneumonia. Pleural: No significant pleural effusions or pneumothorax. Cardiac: The heart size is within normal limits. Bones: No acute fractures. Other: IMPRESSION: No acute cardiopulmonary disease.
[2020-12-18 09:54] LABS: Specific Gravity 1.015 (1.005-1.030)
[2020-12-18] MEDS ORDERED: LIDOCAINE 2% MPF 5 ML VIAL ONE (10:06)
[2020-12-18] MEDS ORDERED: MIDAZOLAM HCL 2 MG/2 ML INJ ONE (10:06)
[2020-12-18] MEDS ORDERED: NS 0.9% VIAL 30 ML ONE (10:06)
[2020-12-18] MEDS ORDERED: FENTANYL CITR 100 MCG/2 ML ONE (10:06)
[2020-12-18] MEDS ORDERED: propofoL 200 MG/20 ML VIAL IV ONE (10:06)
[2020-12-18] MEDS ORDERED: LIDOCAINE 1% MPF 30 ML VIAL ONE (10:06)
[2020-12-18] MEDS ORDERED: dexAMETHasone 10 MG/ML VIAL ONE (10:06)
[2020-12-18] MEDS ORDERED: ONDANSETRON 4 MG/2 ML VIAL ONE (10:06)
[2020-12-18] MEDS ORDERED: KETOROLAC 30 MG/ML INJ ONE (10:06)
[2020-12-18] MEDS ORDERED: CEFAZOLIN/SWI 1gm 2 GM/20 ML SYR ONE (10:11)
[2020-12-18] MEDS ORDERED: Ringers Lactate 1,000 ML IV ONE (10:11)
[2020-12-18 10:16] VITALS: O2SAT 98
[2020-12-18] MEDS ORDERED: ACETAMINOPHEN 500 MG TAB ONE (10:26)
[2020-12-18] MEDS ORDERED: CELECOXIB 100 MG CAPSULE ONE (10:26)
[2020-12-18] MEDS: BUPIVACAINE 0.25% PF 10 ML VIAL ONE ×2 (11:05→11:15)
--- NOTE | 2020-12-18 11:29 | P.BOP ---
Preoperative diagnosis: left carpal tunnel syndrome Postoperative diagnosis: same Primary procedure: left open carpal tunnel release Rubberizing Mechanic: NONE,NONE Estimated blood loss: 2 cc Specimen: none Findings: see dictation Anesthesia: General Complications: None Implants: none Fluids & blood products: per anesthesia record; TT: 29 mins @ 300 mmHg Transferred to: Recovery Room Condition: Good
[2020-12-18 11:51] VITALS: BP 120/52; TEMP 97.4
--- NOTE | 2020-12-19 11:13 | OP ---
Date of Procedure: 12/18/2020 Surgeon: Oliver Hewitt MD Preoperative Diagnosis: Left carpal tunnel syndrome Postoperative Diagnosis: Left carpal tunnel syndrome Procedure Performed: Open left carpal tunnel release. Anesthesia: Fabricio block. Complications: None. Implants: None. Fluids: Per Anesthesia record. Tourniquet Time: 29 minutes at 300 mmHg. Estimated Blood Loss: 2 cc. Indication For Procedure: Ashlyn is a 40-year-old female who presented to my clinic with signs, sy mptoms, and EMG findings consistent with left carpal tunnel syndrome. Patient failed conservative tr eatment measures. I discussed with the patient at length risks and benefits associated with operativ e and nonoperative treatment. She expressed understanding and elected to proceed with the operative treatment. Description Of Procedure: After informed consent was obtained, the patient was identified in the pre operative holding area. The left upper extremity was marked. The patient was then brought back to [facility] operating room, transferred to the operating table in supine fashion. The patient was placed unde r Pierre block anesthesia. A time-out was initiated. Correct patient and procedure confirmed and iden tified. The patient did receive preoperative prophylactic antibiotics. The left upper extremity was then prepped and draped in usual sterile fashion. A time-out was initiated. Correct patient and pr ocedure confirmed and identified. An approximately 3 cm longitudinal incision was made just ulnar to the thenar crease. Dissection was taken down to the palmar fascia. A Davis elevator was placed jus t deep to the palmar fascia and transverse carpal ligament under direct visualization. A 15 blade wa s then used to release the transverse carpal ligament in a distal proximal fashion, protecting the me kirill nerve at all times with the Davis elevator. Blunt-tip Metzenbaum were then used to release any remaining fascial bands, aiming superficially to protect the median nerve at all times. The wound wa s then irrigated thoroughly with normal saline. Skin was approximated using a 5-0 Prolene. Sterile dressings were applied. Tourniquet was let down. The patient was awakened and transferred to PACU i n stable condition. Postoperative Plan: The patient will be nonweightbearing of her left upper extremity. She may begin working on range of motion exercises. She will follow up in 1 week for suture removal. CV/MODL Voice ID: [id number] Report ID: [id number]
== END 2020-12-18 12:22 | disposition home or self-care (01) ==
LOC: OR 09:34
PROVIDERS: ATTEND Orthopaedic Surgery Sports Medicine
PROC: 01N50ZZ Release Median Nerve, Open Approach (ICD-10-PCS; principal; 2020-12-18 12:30)
DX: G56.02 Carpal tunnel syndrome, left upper limb (principal); Z20.822 Contact with and (suspected) exposure to COVID-19
CPT/HCPCS: 93005; 81025; 71046; 64721; U0002; J2704; J2250; J3010; J1100; J0690; J7120; J2405